=== PATIENT | male | born 1950 | race Caucasian/White ===

== ENCOUNTER 2019-05-16 04:23 | Inpatient (IN) | payer MEDICARE, OTHER ==
[~2019-05-16] VITALS: Ht 180.3 cm; Wt 81.8 kg
[2019-05-16] MEDS ORDERED: normal saline 1000ML IV soln IVB ONE (04:35)
[2019-05-16] MEDS ORDERED: methylPREDNISolone sod succ 125mg/2ml vial IV ONE (04:35)
[2019-05-16] MEDS ORDERED: ipratropium/albuterol 3ml nebule NEB ONE (04:35)
[2019-05-16 04:53] LABS: BASOPHILS # (AUTO) 0.2 X10'3 (0-0.2); BASOPHILS % (AUTO) 1.4 % (0-1); EOSINOPHILS # (AUTO) 0.2 X10'3 (0-0.9); EOSINOPHILS % (AUTO) 1.4 % (0-6); HEMATOCRIT 48.6 % (42.0-52.0); HEMOGLOBIN 16.2 g/dl (14.0-17.9); LYMPHOCYTES # (AUTO) 4.8 X10'3 (1.1-4.8); LYMPHOCYTES % (AUTO) 43.4 % (21-51); MEAN CORPUSCULAR HEMOGLOBIN 33.6 PG (27.0-31.0); MEAN CORPUSCULAR HGB CONC 33.2 g/dL (33.0-36.5); MEAN CORPUSCULAR VOLUME 101.2 FL (78-98); MEAN PLATELET VOLUME 8.6 FL (7.4-10.4); MONOCYTES # (AUTO) 0.9 X10'3 (0-0.9); MONOCYTES % (AUTO) 8.3 % (2-12); NEUTROPHILS % (AUTO) 45.5 % (42-75); PLATELET COUNT 239 X10'3 (140-440); RED CELL DISTRIBUTION WIDTH 14.1 % (11.5-14.5)
[2019-05-16 05:16] LABS: D-DIMER 1.23 MG/L FEU (0-0.50); PARTIAL THROMBOPLASTIN TIME 25 SECONDS (22-32)
[2019-05-16] MEDS ORDERED: nitroGLYCERIN 0.4mg SUBLingual tab SL PRN (05:20)
[2019-05-16] MEDS ORDERED: furosemide 10 MG/1 ML 10ml inj IV ONE (05:20)
[2019-05-16 05:27] LABS: ALBUMIN 3.5 G/DL (3.4-5.0); ALBUMIN/GLOBULIN RATIO 0.8 (1.1-1.5); ALKALINE PHOSPHATASE 71 IU/L (46-116); ANION GAP 14 (8-16); ASPARTATE AMINO TRANSFERASE 66 U/L (10-37); BLOOD UREA NITROGEN 7 MG/DL (7-18); BUN/CREATININE RATIO 5.8 (5.4-32.0); CALCIUM 9.1 MG/DL (8.5-10.1); CHLORIDE 110 MMOL/L (99-107); CREATININE 1.21 MG/DL (0.60-1.10); GLUCOSE 166 MG/DL (70-104); POTASSIUM 4.3 MMOL/L (3.5-5.1); SODIUM 147 MMOL/L (135-145); TOTAL CARBON DIOXIDE 23.3 MMOL/L (24-32); TOTAL PROTEIN 7.9 G/DL (6.4-8.2); eGFR 60 ML/MIN
[2019-05-16 05:46] LABS: ALANINE AMINOTRANSFERASE 49 U/L (12-78)
[2019-05-16] MEDS ORDERED: iohexol 350MG/ML 100ml bottle IV ONE (06:12)
[2019-05-16 06:40] LABS: CLARITY,URINE SLIGHTLY CLOUDY (Clear); COLOR,URINE YELLOW (Yellow); GLUCOSE, URINE NEGATIVE (Neg); KETONES,URINE NEGATIVE (Neg); LEUKOCYTE ESTERASE ,URINE NEGATIVE (Neg); NITRITES, URINE NEGATIVE (Neg); OCCULT BLOOD,URINE NEGATIVE (Neg); PROTEIN,URINE 30 mg/dl (Neg)
[2019-05-16 06:46] LABS: UA COLLECTION TYPE CLN CATCH MIDSTREAM
[2019-05-16 06:47] LABS: AMORPHOUS URATES 3+; BACTERIA,URINE FEW /HPF (Neg); HYALINE CASTS 0-3 /LPF (NEGATIVE); MUCUS STRANDS FEW /LPF (Neg); RBC,URINE NONE SEEN /HPF (0-2); SQUAMOUS EPITHELIAL CELL,UR FEW /LPF (FEW); WBC,URINE 0-4 /HPF (0-4)
[2019-05-16 06:55] LABS: URINE AMPHETAMINE SCREEN NEGATIVE (Neg); URINE BARBITUATE SCREEN NEGATIVE (Neg); URINE BENZODIAZEPINES SCREEN NEGATIVE (Neg); URINE CANNABINOID SCREEN POSITIVE (Neg); URINE COCAINE SCREEN NEGATIVE (Neg); URINE METHADONE SCREEN NEGATIVE (Neg); URINE OPIATE SCREEN NEGATIVE (Neg); URINE PHENCYCLIDINE SCREEN NEGATIVE (Neg)
--- NOTE | 2019-05-16 06:55 | NUR ---
PT BACK FROM CT. PT LEADS REAPPLIED AND VS TAKEN.
--- NOTE | 2019-05-16 07:08 | NUR ---
PT HAS TAKEN CARDIAC LEADS OFF.
[2019-05-16] MEDS ORDERED: potassium Cl 20 mEq SR tablet PO PRN ×2 (09:10)
[2019-05-16] MEDS ORDERED: magnesium 2GM in 50ml NS 50 ML IV PRN (09:10)
[2019-05-16] MEDS ORDERED: acetaminophen 325mg tablet PO PRN (09:10)
[2019-05-16] MEDS ORDERED: ondansetron/PF 4mg/2ml inj IV PRN (09:10)
[2019-05-16] MEDS ORDERED: magnesium 4gm in 100ml NS 100 ML IV PRN (09:10)
[2019-05-16] MEDS ORDERED: docusate sod 100mg capsule PO PRN (09:10)
[2019-05-16] MEDS ORDERED: HYDROcodone/acetaminophen 5mg/325mg tablet PO PRN (09:10)
[2019-05-16] MEDS ORDERED: potassium CL 10mEq/100ml bag 100 ML IV PRN ×2 (09:10)
[2019-05-16] MEDS ORDERED: HYDROcodone/acetaminophen 10/325mg tab PO PRN (09:10)
[2019-05-16] MEDS ORDERED: magnesium Cl slow-release 64mg tablet PO PRN (09:10)
[2019-05-16] MEDS ORDERED: LORazepam 1 MG tablet PO PRN (10:00)
[2019-05-16] MEDS ORDERED: haloperidol 5mg tablet PO PRN (10:00)
[2019-05-16] MEDS ORDERED: haloperidol lactate 5mg/ml inj IM PRN (10:00)
[2019-05-16] MEDS: DOXYCYCLINE 100MG CAPSULE PO SCH ×2 (10:00→21:15)
[2019-05-16] MEDS ORDERED: LORazepam 2 mg/ml vial IV PRN (10:00)
--- NOTE | 2019-05-16 10:00 | NUR ---
Patient in room MED 315. I have received report from PINO Sandoval and had the opportunity to ask questions and assume patient care.
--- NOTE | 2019-05-16 10:05 | NUR ---
Pt arrived to room via wheelchair with monitor technician attached. pt arrived with all known belongings and visitor at bedside. pt vss.
[2019-05-16] MEDS: mag hydrox/Alum hydrox/simeth 30ml oral suspension PO PRN ×2 (11:04→17:37)
[2019-05-16 13:13] VITALS: BP 124/86
[2019-05-16] MEDS ORDERED: METO-395 PO (13:51)
[2019-05-16] MEDS: methylPREDNISolone sod succ/PF 40mg inj. IV SCH ×2 (14:27→21:16)
--- NOTE | 2019-05-16 15:00 | NUR ---
Patient in room MICHEAL 355. I have received report from bobo PRINGLE and had the opportunity to ask questions and assume patient care.
[2019-05-16] MEDS: ipratropium/albuterol 3ml nebule NEB SCH ×2 (16:01→20:30)
[2019-05-16] MEDS ORDERED: pneumococcal 23-VAL P-sac vacc 25 mcg/0.5ml vial IMVAC ONE (17:15)
--- NOTE | 2019-05-16 18:42 | NUR ---
Patient in room MICHEAL 355. I have received report from Annabelle PRINGLE and had the opportunity to ask questions and assume patient care.
--- NOTE | 2019-05-16 18:42 | NUR ---
patient resting rest of shift in bed. When staff went to check on patient at 1700hrs, patient was not in room. Security called. patient after 30mins returned to floor with son. Stated he walked to [facility] with son to get a battery. son stated that he and his father did not know they couldn't leave. Charge nurses eladia PRINGLE and flex PRINGLE night charge aware. Dr Jean paged about the event. Stated patient can stay but with reinforced instructions that he could not leave floor. patient compliant, and returned to room. patient appears Alert and orientated. Report given to Edith PRINGLE
[2019-05-16 19:00] VITALS: BP 133/84
[2019-05-16] MEDS: furosemide 20 MG/2 ML vial IV SCH (21:11)
[2019-05-16] MEDS: lactobacillus rhamnosus 10,000 MMU CELLS/CAPSULE PO SCH (21:15)
[2019-05-17] VITALS (10 sets, daily range): BP systolic 119–165; BP diastolic 80–100
[2019-05-17] MEDS: methylPREDNISolone sod succ/PF 40mg inj. IV SCH ×4 (01:17→21:18)
[2019-05-17 05:41] LABS: BASOPHILS % (AUTO) 0.4 % (0-1); EOSINOPHILS % (AUTO) 0 % (0-6); HEMATOCRIT 46.1 % (42.0-52.0); HEMOGLOBIN 15.3 g/dl (14.0-17.9); LYMPHOCYTES # (AUTO) 0.7 X10'3 (1.1-4.8); LYMPHOCYTES % (AUTO) 6.2 % (21-51); MEAN CORPUSCULAR HEMOGLOBIN 32.7 PG (27.0-31.0); MEAN CORPUSCULAR HGB CONC 33.2 g/dL (33.0-36.5); MEAN CORPUSCULAR VOLUME 98.5 FL (78-98); MONOCYTES # (AUTO) 0.3 X10'3 (0-0.9); MONOCYTES % (AUTO) 2.8 % (2-12); NEUTROPHILS # (AUTO) 10.8 X10'3 (1.8-7.7); NEUTROPHILS % (AUTO) 90.6 % (42-75); PLATELET COUNT 196 X10'3 (140-440); RED BLOOD COUNT 4.68 X10'6 (4.70-6.10); RED CELL DISTRIBUTION WIDTH 13.9 % (11.5-14.5)
[2019-05-17 05:53] LABS: ALANINE AMINOTRANSFERASE 38 U/L (12-78); ALBUMIN 3.2 G/DL (3.4-5.0); ALBUMIN/GLOBULIN RATIO 0.8 (1.1-1.5); ALKALINE PHOSPHATASE 72 IU/L (46-116); ANION GAP 9 (8-16); ASPARTATE AMINO TRANSFERASE 28 U/L (10-37); BLOOD UREA NITROGEN 14 MG/DL (7-18); CALCIUM 8.7 MG/DL (8.5-10.1); CHLORIDE 104 MMOL/L (99-107); CHOL/HDL RATIO 2.6 (0.00-4.99); CHOLESTEROL 143 MG/DL (0-200); GLUCOSE 193 MG/DL (70-104); HDL CHOLESTEROL 55 MG/DL (35-60); LDL CHOLESTEROL 77 MG/DL (50-100); LIPASE 66 U/L (73-393); MAGNESIUM 1.9 MG/DL (1.5-2.4); PHOSPHORUS 2.9 MG/DL (2.3-4.5); POTASSIUM 4.3 MMOL/L (3.5-5.1); SODIUM 138 MMOL/L (135-145); TOTAL PROTEIN 7.4 G/DL (6.4-8.2); TRIGLYCERIDES 44 MG/DL (20-135); eGFR 75 ML/MIN
[2019-05-17] MEDS: mag hydrox/Alum hydrox/simeth 30ml oral suspension PO PRN (07:22)
[2019-05-17] MEDS: DOXYCYCLINE 100MG CAPSULE PO SCH ×2 (07:23→21:18)
[2019-05-17] MEDS: multivitamins, therapeutics tablet PO SCH (07:23)
[2019-05-17] MEDS: thiamine 100mg tablet PO SCH (07:23)
[2019-05-17] MEDS: lactobacillus rhamnosus 10,000 MMU CELLS/CAPSULE PO SCH ×2 (07:23→21:18)
[2019-05-17] MEDS: folic acid 1mg tablet PO SCH (07:23)
[2019-05-17] MEDS: lisinopril 2.5mg tablet PO SCH (07:24)
[2019-05-17] MEDS: furosemide 20 MG/2 ML vial IV SCH ×2 (07:26→21:19)
[2019-05-17] MEDS: enoxaparin 40mg/0.4ml syringe SQ SCH ×2 (07:26→07:34)
[2019-05-17] MEDS ORDERED: K and/or MAG REPLACEMENT MC SCH (08:00)
[2019-05-17] MEDS ORDERED: metoprolol succinate 25mg (24-HOUR) SR. Tablet PO SCH (08:00)
[2019-05-17] MEDS: ipratropium/albuterol 3ml nebule NEB SCH ×3 (08:55→20:26)
[2019-05-17] MEDS ORDERED: nitroGLYCERIN 0.4mg SUBLingual tab SL PRN (13:20)
[2019-05-17] MEDS ORDERED: regadenoson 0.4mg/5ml syringe IV ONE (13:20)
[2019-05-17] MEDS ORDERED: aminophylline 250mg/10ml inj. IV PRN (13:20)
[2019-05-17] MEDS ORDERED: metoprolol tartrate 1mg/ml inj IV PRN (13:20)
[2019-05-17] MEDS ORDERED: potassium CL 10mEq/100ml bag 100 ML IV PRN (13:35)
[2019-05-17] MEDS ORDERED: magnesium Cl slow-release 64mg tablet PO PRN (13:35)
[2019-05-17] MEDS ORDERED: potassium Cl 20 mEq SR tablet PO PRN ×2 (13:35)
[2019-05-17] MEDS ORDERED: magnesium 4gm in 100ml NS 100 ML IV PRN (13:35)
--- NOTE | 2019-05-17 17:54 | NUR ---
Patient shaved. IVs in appropriate places per cath lab tech request. Awaiting time for orange picker machine operator for cath lab tech
[2019-05-17] MEDS ORDERED: midazolam 2 mg/2 ml injection ONE (18:15)
[2019-05-17] MEDS ORDERED: iohexol 350MG/ML 100ml bottle IV ONE (18:15)
[2019-05-17] MEDS ORDERED: verapamil 2.5 mg/ml inj IV ONE (18:15)
[2019-05-17] MEDS ORDERED: iohexol 350 MG/ML 50ML vial IV ONE ×3 (18:15→19:44)
[2019-05-17] MEDS ORDERED: fentaNYL/PF 50MCG/1 ML 2ML syringe ONE (18:15)
[2019-05-17] MEDS ORDERED: heparin 1,000unit/ml 10ml vial 10 ML ONE (18:15)
[2019-05-17] MEDS ORDERED: nitroGLYCERIN-Tridil 50MG/D5W 250 ML IV ONE (18:15)
[2019-05-17] MEDS ORDERED: LIDOcaine 1% (10mg/ml)w/preservative injection 20ml MDV ONE (18:25)
--- NOTE | 2019-05-17 18:29 | NUR ---
Problems reprioritized. Patient report given, questions answered & plan of care reviewed with LYLY Macdonald RN.
--- NOTE | 2019-05-17 18:38 | NUR ---
Patient in room MICHEAL 355. I have received report from PINO KNIGHT and had the opportunity to ask questions and assume patient care. Addendum: 05/17/19 at 1838 by Kathy Alvarado RN Amended: Links added.
--- NOTE | 2019-05-17 19:06 | NUR ---
patient was taken down for cardiac cath @1830
[2019-05-17] MEDS ORDERED: furosemide 40mg/4ml inj ONE (19:45)
[2019-05-17 19:51] LABS: ISTAT HGB ART 15.6 g/dl (14.0-18.0); ISTAT Hct ART 46 %PCV (42-52); ISTAT O2 SATURATION ARTERIAL 94 % (95-98); ISTAT SOURCE ART
[2019-05-17 19:51] LABS: ISTAT Hct MIX 47 %PCV (42-52); ISTAT O2 SATURATION MIX VENOUS 71 % (60-80); ISTAT SOURCE MIX
--- NOTE | 2019-05-17 20:22 | NUR ---
patient just came back from cardiac cath, not in distress and will continue to monitor
[2019-05-17] MEDS: carvedilol 6.25mg tablet PO SCH (21:18)
[2019-05-17] MEDS: acetylcysteine 200 MG/ml 4ml vial PO SCH (21:18)
--- NOTE | 2019-05-17 23:05 | NUR ---
patient educated about post op cardiac cath instructions he was cooperative and first but then keep moving and curling up in bed most of the time, did spoke to him about the risks and hes aware
[2019-05-18] VITALS: BP 113/70
[2019-05-18 00:15] VITALS: BP 129/76
[2019-05-18] MEDS: methylPREDNISolone sod succ/PF 40mg inj. IV SCH ×2 (02:11→08:00)
--- NOTE | 2019-05-18 05:31 | NUR ---
pt accidently pulled IV out and refusing to start a new one. pedals palpable and in no acute distress. rt. groin no bleeding and denies chest pain
[2019-05-18 06:12] LABS: BASOPHILS % (AUTO) 0.3 % (0-1); EOSINOPHILS % (AUTO) 0 % (0-6); HEMOGLOBIN 15.8 g/dl (14.0-17.9); LYMPHOCYTES # (AUTO) 0.9 X10'3 (1.1-4.8); LYMPHOCYTES % (AUTO) 5.7 % (21-51); MEAN CORPUSCULAR HEMOGLOBIN 33.3 PG (27.0-31.0); MEAN CORPUSCULAR HGB CONC 33.6 g/dL (33.0-36.5); MEAN CORPUSCULAR VOLUME 99.3 FL (78-98); MEAN PLATELET VOLUME 8.5 FL (7.4-10.4); MONOCYTES # (AUTO) 0.5 X10'3 (0-0.9); MONOCYTES % (AUTO) 3.5 % (2-12); NEUTROPHILS # (AUTO) 13.5 X10'3 (1.8-7.7); NEUTROPHILS % (AUTO) 90.5 % (42-75); PLATELET COUNT 199 X10'3 (140-440); RED BLOOD COUNT 4.74 X10'6 (4.70-6.10)
[2019-05-18 06:34] LABS: ALANINE AMINOTRANSFERASE 42 U/L (12-78); ALBUMIN 3.3 G/DL (3.4-5.0); ALBUMIN/GLOBULIN RATIO 0.8 (1.1-1.5); ALKALINE PHOSPHATASE 68 IU/L (46-116); ANION GAP 9 (8-16); ASPARTATE AMINO TRANSFERASE 72 U/L (10-37); BILIRUBIN,TOTAL 1.1 MG/DL (0.1-1.0); BLOOD UREA NITROGEN 23 MG/DL (7-18); BUN/CREATININE RATIO 22.3 (5.4-32.0); CALCIUM 8.9 MG/DL (8.5-10.1); CHLORIDE 103 MMOL/L (99-107); CREATININE 1.03 MG/DL (0.60-1.10); GLUCOSE 156 MG/DL (70-104); LIPASE 93 U/L (73-393); PHOSPHORUS 4.4 MG/DL (2.3-4.5); POTASSIUM 5.3 MMOL/L (3.5-5.1); SODIUM 136 MMOL/L (135-145); TOTAL CARBON DIOXIDE 23.8 MMOL/L (24-32); TOTAL PROTEIN 7.3 G/DL (6.4-8.2); eGFR 72 ML/MIN
--- NOTE | 2019-05-18 06:37 | NUR ---
Problems reprioritized. Patient report given, questions answered & plan of care reviewed with PINO Alanis. Addendum: 05/18/19 at 0637 by Kathy Alvarado RN Amended: Links added.
--- NOTE | 2019-05-18 06:49 | NUR ---
Patient in room MICHEAL 350. I have received report from Lucrecia Macdonald RN and had the opportunity to ask questions and assume patient care.
[2019-05-18 08:00] VITALS: BP 120/87
[2019-05-18] MEDS: furosemide 20 MG/2 ML vial IV SCH (08:00)
[2019-05-18] MEDS: carvedilol 6.25mg tablet PO SCH ×2 (08:26→20:55)
[2019-05-18] MEDS: folic acid 1mg tablet PO SCH (08:26)
[2019-05-18] MEDS: lactobacillus rhamnosus 10,000 MMU CELLS/CAPSULE PO SCH ×2 (08:27→20:55)
[2019-05-18] MEDS: thiamine 100mg tablet PO SCH (08:27)
[2019-05-18] MEDS: multivitamins, therapeutics tablet PO SCH (08:27)
[2019-05-18] MEDS: lisinopril 2.5mg tablet PO SCH (08:27)
[2019-05-18] MEDS: DOXYCYCLINE 100MG CAPSULE PO SCH ×2 (08:27→20:55)
[2019-05-18] MEDS: acetylcysteine 200 MG/ml 4ml vial PO SCH ×2 (08:28→20:55)
[2019-05-18] MEDS: ipratropium/albuterol 3ml nebule NEB SCH ×3 (09:53→20:08)
[2019-05-18] MEDS: predniSONE 20 mg tablet PO SCH (10:44)
[2019-05-18] MEDS: furosemide 20MG tablet PO SCH (10:45)
[2019-05-18 12:00] VITALS: BP 123/74
[2019-05-18] MEDS ORDERED: spironolactone 25 MG tablet PO SCH (12:00)
--- NOTE | 2019-05-18 15:14 | NUR ---
Patient refused to have labs done, but after discussing need for it patient stated that it is ok if pharmacy laboratory technician uses small needle. Lab called and informed of this. . Patient resting at this time.
[2019-05-18 15:17] LABS: ALANINE AMINOTRANSFERASE 51 U/L (12-78); ALBUMIN 3.3 G/DL (3.4-5.0); ALBUMIN/GLOBULIN RATIO 0.8 (1.1-1.5); ALKALINE PHOSPHATASE 60 IU/L (46-116); ANION GAP 11 (8-16); ASPARTATE AMINO TRANSFERASE 110 U/L (10-37); BILIRUBIN,TOTAL 1.1 MG/DL (0.1-1.0); BLOOD UREA NITROGEN 25 MG/DL (7-18); BUN/CREATININE RATIO 21.2 (5.4-32.0); CHLORIDE 101 MMOL/L (99-107); CREATININE 1.18 MG/DL (0.60-1.10); GLUCOSE 172 MG/DL (70-104); POTASSIUM 4.8 MMOL/L (3.5-5.1); SODIUM 136 MMOL/L (135-145); TOTAL CARBON DIOXIDE 24.2 MMOL/L (24-32); TOTAL PROTEIN 7.4 G/DL (6.4-8.2); eGFR 62 ML/MIN
--- NOTE | 2019-05-18 18:07 | NUR ---
Problems reprioritized. Patient report given, questions answered & plan of care reviewed with Lucrecia Macdonald RN.
--- NOTE | 2019-05-18 18:38 | NUR ---
Patient in room MICHEAL 350. I have received report from PINO Alanis and had the opportunity to ask questions and assume patient care. Addendum: 05/18/19 at 1838 by Kathy Alvarado RN Amended: Links added.
[2019-05-18 19:00] VITALS: BP 107/67
[2019-05-19] VITALS: BP 104/72
[2019-05-19 04:58] LABS: BASOPHILS % (AUTO) 0.2 % (0-1); EOSINOPHILS % (AUTO) 0.1 % (0-6); HEMATOCRIT 49.3 % (42.0-52.0); HEMOGLOBIN 16.6 g/dl (14.0-17.9); LYMPHOCYTES # (AUTO) 2.1 X10'3 (1.1-4.8); MEAN CORPUSCULAR HEMOGLOBIN 33.2 PG (27.0-31.0); MEAN CORPUSCULAR HGB CONC 33.6 g/dL (33.0-36.5); MEAN CORPUSCULAR VOLUME 98.7 FL (78-98); MEAN PLATELET VOLUME 8.9 FL (7.4-10.4); MONOCYTES % (AUTO) 8.5 % (2-12); NEUTROPHILS # (AUTO) 8.8 X10'3 (1.8-7.7); NEUTROPHILS % (AUTO) 73.2 % (42-75); PLATELET COUNT 164 X10'3 (140-440); RED CELL DISTRIBUTION WIDTH 13.9 % (11.5-14.5)
[2019-05-19 05:09] LABS: ALANINE AMINOTRANSFERASE 68 U/L (12-78); ALBUMIN 3.3 G/DL (3.4-5.0); ALBUMIN/GLOBULIN RATIO 0.9 (1.1-1.5); ALKALINE PHOSPHATASE 60 IU/L (46-116); ANION GAP 9 (8-16); ASPARTATE AMINO TRANSFERASE 140 U/L (10-37); BLOOD UREA NITROGEN 30 MG/DL (7-18); BUN/CREATININE RATIO 30.3 (5.4-32.0); CALCIUM 8.8 MG/DL (8.5-10.1); CHLORIDE 101 MMOL/L (99-107); CREATININE 0.99 MG/DL (0.60-1.10); GLUCOSE 102 MG/DL (70-104); LIPASE 223 U/L (73-393); MAGNESIUM 1.9 MG/DL (1.5-2.4); PHOSPHORUS 4.2 MG/DL (2.3-4.5); POTASSIUM 4.7 MMOL/L (3.5-5.1); SODIUM 134 MMOL/L (135-145); TOTAL CARBON DIOXIDE 24.3 MMOL/L (24-32); TOTAL PROTEIN 7.1 G/DL (6.4-8.2); eGFR 76 ML/MIN
[2019-05-19] MEDS: mag hydrox/Alum hydrox/simeth 30ml oral suspension PO PRN (05:29)
--- NOTE | 2019-05-19 06:31 | NUR ---
Problems reprioritized. Patient report given, questions answered & plan of care reviewed with PINO Alanis. Addendum: 05/19/19 at 0631 by Kathy Alvarado RN Amended: Links added.
[2019-05-19 07:00] VITALS: BP 106/69
--- NOTE | 2019-05-19 07:20 | NUR ---
Patient in room MICHEAL 350. I have received report from Lucrecia Macdonald RN and had the opportunity to ask questions and assume patient care.
[2019-05-19] MEDS: multivitamins, therapeutics tablet PO SCH (08:59)
[2019-05-19] MEDS: lactobacillus rhamnosus 10,000 MMU CELLS/CAPSULE PO SCH (08:59)
[2019-05-19] MEDS: folic acid 1mg tablet PO SCH (08:59)
[2019-05-19] MEDS: lisinopril 2.5mg tablet PO SCH (08:59)
[2019-05-19] MEDS: predniSONE 20 mg tablet PO SCH (09:01)
[2019-05-19] MEDS: thiamine 100mg tablet PO SCH (09:01)
[2019-05-19] MEDS: DOXYCYCLINE 100MG CAPSULE PO SCH (09:01)
[2019-05-19] MEDS: carvedilol 6.25mg tablet PO SCH (09:01)
[2019-05-19] MEDS: furosemide 20MG tablet PO SCH (09:02)
[2019-05-19] MEDS: acetylcysteine 200 MG/ml 4ml vial PO SCH (09:06)
[2019-05-19] MEDS ORDERED: metolazone 2.5mg tablet PO SCH (09:30)
[2019-05-19] MEDS: ipratropium/albuterol 3ml nebule NEB SCH (09:45)
[2019-05-19 11:00] VITALS: BP 101/64
[2019-05-19] MEDS ORDERED: ALBU18HF2 INH (12:29)
[2019-05-19] MEDS ORDERED: PRED20TA PO (12:29)
[2019-05-19] MEDS ORDERED: DOXY-224 PO (12:29)
[2019-05-19] MEDS ORDERED: FURO20TA4 PO (12:29)
[2019-05-19] MEDS ORDERED: CARV6.253 PO (12:29)
[2019-05-19] MEDS ORDERED: LISI2.5T2 PO (12:29)
--- NOTE | 2019-05-19 15:21 | NUR ---
patient seen by Dr Jordan , and Dr Jean, is for discharge. meds delivered by [facility] . ALl DC instructions given to patient and sister. Patient appears stable for DC. Discharged home via private car 1500hrs.
== END 2019-05-19 14:30 | disposition home or self-care (01) | DRG 286 ==
LOC: ER 04:25 → MED 3N 10:09 → SUR 3N 14:20
PROVIDERS: ADMIT Family Medicine; ATTEND Family Medicine
PROC: 3E0234Z Introduction of Serum, Toxoid and Vaccine into Muscle, Percutaneous Approach (ICD-10-PCS; 2019-05-16)
PROC: B32T1ZZ Computerized Tomography (CT Scan) of Left Pulmonary Artery using Low Osmolar Contrast (ICD-10-PCS; 2019-05-16)
PROC: B3201ZZ Computerized Tomography (CT Scan) of Thoracic Aorta using Low Osmolar Contrast (ICD-10-PCS; 2019-05-16)
PROC: B32S1ZZ Computerized Tomography (CT Scan) of Right Pulmonary Artery using Low Osmolar Contrast (ICD-10-PCS; 2019-05-16)
PROC: B2111ZZ Fluoroscopy of Multiple Coronary Arteries using Low Osmolar Contrast (ICD-10-PCS; principal; 2019-05-17)
PROC: B2151ZZ Fluoroscopy of Left Heart using Low Osmolar Contrast (ICD-10-PCS; 2019-05-17)
PROC: 4A023N8 Measurement of Cardiac Sampling and Pressure, Bilateral, Percutaneous Approach (ICD-10-PCS; 2019-05-17)
PROC: B3101ZZ Fluoroscopy of Thoracic Aorta using Low Osmolar Contrast (ICD-10-PCS; 2019-05-17)
DX: I11.0 Hypertensive heart disease with heart failure (principal); I50.21 Acute systolic (congestive) heart failure; J96.01 Acute respiratory failure with hypoxia; J44.1 Chronic obstructive pulmonary disease with (acute) exacerbation; I25.10 Atherosclerotic heart disease of native coronary artery without angina pectoris; R00.0 Tachycardia, unspecified; F10.10 Alcohol abuse, uncomplicated; F17.210 Nicotine dependence, cigarettes, uncomplicated; I35.0 Nonrheumatic aortic (valve) stenosis; I42.0 Dilated cardiomyopathy; I42.6 Alcoholic cardiomyopathy; Z79.899 Other long term (current) drug therapy; Z80.0 Family history of malignant neoplasm of digestive organs; Z80.3 Family history of malignant neoplasm of breast; Z82.49 Family history of ischemic heart disease and other diseases of the circulatory system; Z23 Encounter for immunization; Z80.49 Family history of malignant neoplasm of other genital organs; Z71.6 Tobacco abuse counseling; Z71.41 Alcohol abuse counseling and surveillance of alcoholic; E87.5 Hyperkalemia; T50.0X5A Adverse effect of mineralocorticoids and their antagonists, initial encounter; Y92.238 Other place in hospital as the place of occurrence of the external cause
CPT/HCPCS: 36415; 71045; 71275; 80053; 80061; 80305; 81001; 82803; 83690; 83735; 83880; 84100; 84484; 85014; 85025; 85379; 85610; 85730; 90732; 93005; 93306; 93460; 93567; 94640; 94760; 96374; 96375; 99152; 99153; 99285; A4620; A5120; A6258; C1760; C1769; C1894; G0378; J1644; J1650; J1940; J2001; J2250; J2920; J2930; J3010; J3490; J7512; Q9967

== ENCOUNTER 2020-07-26 14:07 | Emergency (ER) | payer MEDICARE, MEDICAID ==
[~2020-07-26] VITALS: Ht 180.3 cm; Wt 77.3 kg
[~2020-07-26 14:07] MED LIST: ALBU18HF2 INH; CARV6.253 PO; DOXY-224 PO; FURO20TA4 PO; LISI2.5T2 PO; PRED20TA PO
[2020-07-26] MEDS ORDERED: normal saline 1000ML IV soln IVB ONE (14:35)
[2020-07-26] MEDS ORDERED: methylPREDNISolone sod succ 125mg/2ml vial IV ONE (14:35)
[2020-07-26] MEDS ORDERED: ipratropium/albuterol 3ml nebule NEB ONE (14:35)
[2020-07-26 15:06] LABS: BASOPHILS # (AUTO) 0.1 X10'3 (0-0.2); EOSINOPHILS # (AUTO) 0.5 X10'3 (0-0.9); EOSINOPHILS % (AUTO) 7.8 % (0-6); HEMATOCRIT 41.9 % (42.0-52.0); HEMOGLOBIN 13.8 g/dl (14.0-17.9); LYMPHOCYTES # (AUTO) 1.6 X10'3 (1.1-4.8); LYMPHOCYTES % (AUTO) 27.6 % (21-51); MEAN CORPUSCULAR HEMOGLOBIN 31.2 PG (27.0-31.0); MEAN CORPUSCULAR HGB CONC 32.9 g/dL (33.0-36.5); MEAN CORPUSCULAR VOLUME 94.8 FL (78-98); MEAN PLATELET VOLUME 8.9 FL (7.4-10.4); MONOCYTES # (AUTO) 0.5 X10'3 (0-0.9); MONOCYTES % (AUTO) 9.2 % (2-12); NEUTROPHILS # (AUTO) 3.2 X10'3 (1.8-7.7); NEUTROPHILS % (AUTO) 54.4 % (42-75); PLATELET COUNT 145 X10'3 (140-440); RED BLOOD COUNT 4.42 X10'6 (4.70-6.10); RED CELL DISTRIBUTION WIDTH 13.8 % (11.5-14.5); WHITE BLOOD COUNT 5.9 X10'3 (4.5-11.0)
[2020-07-26] MEDS ORDERED: albuterol 2.5 MG/3 ML nebule NEB ONE (15:20)
[2020-07-26 15:21] LABS: ALANINE AMINOTRANSFERASE 20 U/L (12-78); ALBUMIN 3.5 G/DL (3.4-5.0); ALKALINE PHOSPHATASE 73 IU/L (46-116); ANION GAP 9 (8-16); ASPARTATE AMINO TRANSFERASE 16 U/L (10-37); BILIRUBIN,TOTAL 1.9 MG/DL (0.1-1.0); BLOOD UREA NITROGEN 16 MG/DL (7-18); BUN/CREATININE RATIO 16.5 (5.4-32.0); CALCIUM 8.8 MG/DL (8.5-10.1); CHLORIDE 103 MMOL/L (99-107); CREATININE 0.97 MG/DL (0.60-1.10); GLUCOSE 110 MG/DL (70-104); POTASSIUM 4.5 MMOL/L (3.5-5.1); SODIUM 138 MMOL/L (135-145); TOTAL CARBON DIOXIDE 26.5 MMOL/L (24-32); TOTAL PROTEIN 7.1 G/DL (6.4-8.2); eGFR 77 ML/MIN
[2020-07-26] MEDS ORDERED: albuterol 2.5 MG/3 ML nebule ONE (16:06)
[2020-07-26] MEDS ORDERED: ALBU6.7H9 INH (16:38)
[2020-07-26] MEDS ORDERED: AZIT250T2 PO (16:38)
[2020-07-26] MEDS ORDERED: PRED20TA PO (16:38)
[2020-07-26 16:56] VITALS: BP 122/63
== END 2020-07-26 16:57 | disposition home or self-care (01) ==
LOC: ER 14:07
DX: J44.1 Chronic obstructive pulmonary disease with (acute) exacerbation (principal); R06.02 Shortness of breath; R05 Cough; Z79.2 Long term (current) use of antibiotics; Z79.899 Other long term (current) drug therapy
CPT/HCPCS: 36415; 71045; 80053; 85025; 93005; 94640; 96361; 96374; 99285; J2930; J7030

== ENCOUNTER 2020-07-31 09:46 | Emergency (ER) | payer MEDICARE, MEDICAID ==
[~2020-07-31] VITALS: Ht 180.3 cm; Wt 77.3 kg
[~2020-07-31 09:46] MED LIST changes: +ALBU6.7H9 INH; +AZIT250T2 PO
--- NOTE | 2020-07-31 10:30 | NUR ---
pt is complaining about the EMS "buggy driver" who brought him in. stating that "they said I only wanted to come in to get a bed. they shouldn't assume that as if nothing is wrong with me. I want to talk to the person in charge." offered to have the charge nurse come in and talk with him. He said, "I don't want the charge nurse. I want someone higher up because that margoth is gonna hear it from me." the pt made some other colorful remarks.
[2020-07-31 10:50] LABS: BASOPHILS # (AUTO) 0.1 X10'3 (0-0.2); BASOPHILS % (AUTO) 0.9 % (0-1); EOSINOPHILS # (AUTO) 0.2 X10'3 (0-0.9); EOSINOPHILS % (AUTO) 2.4 % (0-6); HEMATOCRIT 41.5 % (42.0-52.0); HEMOGLOBIN 13.8 g/dl (14.0-17.9); LYMPHOCYTES # (AUTO) 2.2 X10'3 (1.1-4.8); MEAN CORPUSCULAR HEMOGLOBIN 31.4 PG (27.0-31.0); MEAN CORPUSCULAR HGB CONC 33.2 g/dL (33.0-36.5); MEAN CORPUSCULAR VOLUME 94.5 FL (78-98); MONOCYTES # (AUTO) 0.6 X10'3 (0-0.9); MONOCYTES % (AUTO) 7.5 % (2-12); NEUTROPHILS # (AUTO) 4.8 X10'3 (1.8-7.7); NEUTROPHILS % (AUTO) 61.2 % (42-75); PLATELET COUNT 151 X10'3 (140-440); RED BLOOD COUNT 4.39 X10'6 (4.70-6.10); RED CELL DISTRIBUTION WIDTH 13.8 % (11.5-14.5); WHITE BLOOD COUNT 7.8 X10'3 (4.5-11.0)
[2020-07-31 11:06] LABS: ALANINE AMINOTRANSFERASE 25 U/L (12-78); ALBUMIN 3.5 G/DL (3.4-5.0); ALKALINE PHOSPHATASE 62 IU/L (46-116); ANION GAP 11 (8-16); ASPARTATE AMINO TRANSFERASE 17 U/L (10-37); BLOOD UREA NITROGEN 29 MG/DL (7-18); CALCIUM 8.4 MG/DL (8.5-10.1); CHLORIDE 103 MMOL/L (99-107); CREATININE 1.16 MG/DL (0.60-1.10); D-DIMER 4.42 MG/L FEU (0-0.50); GLUCOSE 120 MG/DL (70-104); PARTIAL THROMBOPLASTIN TIME 26 SECONDS (22-32); POTASSIUM 3.9 MMOL/L (3.5-5.1); SODIUM 139 MMOL/L (135-145); TOTAL CARBON DIOXIDE 24.6 MMOL/L (24-32); eGFR 63 ML/MIN
[2020-07-31 11:11] LABS: MAGNESIUM 1.7 MG/DL (1.5-2.4)
[2020-07-31] MEDS ORDERED: iohexol 350MG/ML 100ml bottle IV ONE (11:54)
[2020-07-31 12:59] VITALS: BP 103/66
--- NOTE | 2020-07-31 13:15 | NUR ---
pt has talked with Tod about the EMS issue.
== END 2020-07-31 13:24 | disposition home or self-care (01) ==
LOC: ER 09:46
DX: I50.9 Heart failure, unspecified (principal); Z98.890 Other specified postprocedural states; Z95.0 Presence of cardiac pacemaker; Z79.899 Other long term (current) drug therapy
CPT/HCPCS: 36415; 71045; 71275; 80053; 83735; 83880; 84484; 85025; 85379; 85610; 85730; 93005; 99285; Q9967

== ENCOUNTER 2020-08-05 01:44 | Emergency (ER) | payer MEDICARE, MEDICAID ==
[~2020-08-05] VITALS: Ht 180.3 cm; Wt 77.3 kg
[~2020-08-05 01:44] MED LIST changes: -AZIT250T2 PO
[2020-08-05 01:48] VITALS: BP 112/72
[2020-08-05 02:59] LABS: BASOPHILS % (AUTO) 0.8 % (0-1); EOSINOPHILS # (AUTO) 0.2 X10'3 (0-0.9); EOSINOPHILS % (AUTO) 3.2 % (0-6); HEMATOCRIT 40.4 % (42.0-52.0); HEMOGLOBIN 13.3 g/dl (14.0-17.9); LYMPHOCYTES # (AUTO) 1.7 X10'3 (1.1-4.8); LYMPHOCYTES % (AUTO) 28.7 % (21-51); MEAN CORPUSCULAR HGB CONC 32.9 g/dL (33.0-36.5); MEAN CORPUSCULAR VOLUME 94.3 FL (78-98); MEAN PLATELET VOLUME 8.7 FL (7.4-10.4); MONOCYTES # (AUTO) 0.6 X10'3 (0-0.9); MONOCYTES % (AUTO) 10.8 % (2-12); NEUTROPHILS # (AUTO) 3.3 X10'3 (1.8-7.7); NEUTROPHILS % (AUTO) 56.5 % (42-75); PLATELET COUNT 147 X10'3 (140-440); RED BLOOD COUNT 4.28 X10'6 (4.70-6.10); WHITE BLOOD COUNT 5.8 X10'3 (4.5-11.0)
[2020-08-05 03:03] LABS: ALANINE AMINOTRANSFERASE 26 U/L (12-78); ALBUMIN 3.3 G/DL (3.4-5.0); ALKALINE PHOSPHATASE 64 IU/L (46-116); ANION GAP 10 (8-16); ASPARTATE AMINO TRANSFERASE 16 U/L (10-37); BILIRUBIN,TOTAL 1.6 MG/DL (0.1-1.0); BLOOD UREA NITROGEN 21 MG/DL (7-18); CALCIUM 8.6 MG/DL (8.5-10.1); CHLORIDE 104 MMOL/L (99-107); GLUCOSE 114 MG/DL (70-104); SODIUM 140 MMOL/L (135-145); TOTAL CARBON DIOXIDE 25.6 MMOL/L (24-32); TOTAL PROTEIN 6.7 G/DL (6.4-8.2); eGFR 74 ML/MIN
[2020-08-05 03:13] LABS: TROPONIN I < 0.04 NG/ML (0.0-0.05)
== END 2020-08-05 04:17 | disposition home or self-care (01) ==
LOC: ER 01:45
DX: R06.09 Other forms of dyspnea (principal); R06.02 Shortness of breath; Z95.0 Presence of cardiac pacemaker; Z79.899 Other long term (current) drug therapy
CPT/HCPCS: 36415; 71045; 80053; 83880; 84484; 85025; 93005; 99285

== ENCOUNTER 2020-08-11 11:06 | Inpatient (IN) | payer MEDICARE, MEDICAID ==
[~2020-08-11] VITALS: Ht 180.3 cm; Wt 77.0 kg
[2020-08-11 12:04] LABS: BASOPHILS % (AUTO) 0.7 % (0-1); EOSINOPHILS # (AUTO) 0.5 X10'3 (0-0.9); EOSINOPHILS % (AUTO) 8.2 % (0-6); HEMATOCRIT 44.1 % (42.0-52.0); HEMOGLOBIN 14.6 g/dl (14.0-17.9); LYMPHOCYTES # (AUTO) 1.5 X10'3 (1.1-4.8); LYMPHOCYTES % (AUTO) 23.2 % (21-51); MEAN CORPUSCULAR HEMOGLOBIN 31.3 PG (27.0-31.0); MEAN CORPUSCULAR HGB CONC 33.1 g/dL (33.0-36.5); MEAN CORPUSCULAR VOLUME 94.6 FL (78-98); MEAN PLATELET VOLUME 8.7 FL (7.4-10.4); MONOCYTES # (AUTO) 0.5 X10'3 (0-0.9); MONOCYTES % (AUTO) 7.2 % (2-12); NEUTROPHILS # (AUTO) 3.9 X10'3 (1.8-7.7); NEUTROPHILS % (AUTO) 60.7 % (42-75); PLATELET COUNT 150 X10'3 (140-440); RED BLOOD COUNT 4.66 X10'6 (4.70-6.10); RED CELL DISTRIBUTION WIDTH 14.4 % (11.5-14.5); WHITE BLOOD COUNT 6.3 X10'3 (4.5-11.0)
[2020-08-11 12:22] LABS: ALANINE AMINOTRANSFERASE 28 U/L (12-78); ALBUMIN 3.9 G/DL (3.4-5.0); ALKALINE PHOSPHATASE 108 IU/L (46-116); ANION GAP 10 (8-16); ASPARTATE AMINO TRANSFERASE 34 U/L (10-37); BILIRUBIN,TOTAL 2.9 MG/DL (0.1-1.0); BLOOD UREA NITROGEN 20 MG/DL (7-18); BUN/CREATININE RATIO 17.7 (5.4-32.0); CALCIUM 8.7 MG/DL (8.5-10.1); CHLORIDE 99 MMOL/L (99-107); CREATININE 1.13 MG/DL (0.60-1.10); GLUCOSE 119 MG/DL (70-104); POTASSIUM 4.8 MMOL/L (3.5-5.1); SODIUM 133 MMOL/L (135-145); eGFR 65 ML/MIN
[2020-08-11] MEDS ORDERED: ipratropium/albuterol 3ml nebule NEB ONE (12:35)
[2020-08-11] MEDS ORDERED: methylPREDNISolone sod succ 125mg/2ml vial IV ONE (12:35)
[2020-08-11] MEDS ORDERED: albuterol 2.5 MG/3 ML nebule NEB ONE (12:35)
[2020-08-11] MEDS ORDERED: CARV6.253 PO (12:47)
[2020-08-11] MEDS ORDERED: OMEP-50 PO (12:47)
[2020-08-11] MEDS ORDERED: ATOR40TA72 PO (12:47)
[2020-08-11] MEDS ORDERED: LISI2.5T2 PO (12:47)
[2020-08-11] MEDS ORDERED: ASPI-1397 PO (12:47)
[2020-08-11] MEDS ORDERED: ALBU18HF2 IH (12:47)
[2020-08-11] MEDS ORDERED: FURO40TA4 PO (12:47)
[2020-08-11] MEDS ORDERED: magnesium 2GM in 50ml NS 50 ML IV PRN (13:40)
[2020-08-11] MEDS ORDERED: magnesium Cl slow-release 64mg tablet PO PRN (13:40)
[2020-08-11] MEDS ORDERED: potassium Cl 20 mEq SR tablet PO PRN ×2 (13:40)
[2020-08-11] MEDS ORDERED: magnesium 4gm in 100ml NS 100 ML IV PRN (13:40)
[2020-08-11] MEDS ORDERED: potassium CL 10mEq/100ml bag 100 ML IV PRN ×2 (13:40)
[2020-08-11] MEDS ORDERED: ondansetron/PF 4mg/2ml inj IV PRN (13:40)
[2020-08-11] MEDS ORDERED: acetaminophen 325mg tablet PO PRN (13:40)
[2020-08-11] MEDS ORDERED: ipratropium/albuterol 3ml nebule NEB PRN (13:40)
--- NOTE | 2020-08-11 14:43 | NUR ---
CALLED FOR REPORT FROM ER. NURSE WAS ON LUNCH , SHE JUST CALLED AND GAVE REPORT.
[2020-08-11] MEDS: aspirin 81mg tablet.DR PO SCH (15:30)
[2020-08-11] MEDS: lisinopril 2.5mg tablet PO SCH (15:31)
[2020-08-11 16:49] VITALS: BP 122/76
[2020-08-11 18:00] VITALS: BP 138/74
--- NOTE | 2020-08-11 18:06 | NUR ---
Problems reprioritized. Patient report given, questions answered & plan of care reviewed with dolores kaye.
--- NOTE | 2020-08-11 18:16 | NUR ---
Patient in room MED 318. I have received report from Sandra PRINGLE and had the opportunity to ask questions and assume patient care.
[2020-08-11] MEDS: carvedilol 6.25mg tablet PO SCH (20:00)
[2020-08-11] MEDS: K and/or MAG REPLACEMENT MC SCH (20:00)
[2020-08-11] MEDS: methylPREDNISolone sod succ/PF 40mg inj. IV SCH (20:53)
[2020-08-11] MEDS: heparin, porcine 5000 units/ml vial SQ SCH (20:55)
[2020-08-11 22:00] VITALS: BP 101/62
[2020-08-12 00:38] LABS: BASOPHILS % (AUTO) 0.5 % (0-1); EOSINOPHILS % (AUTO) 0.4 % (0-6); HEMATOCRIT 39.8 % (42.0-52.0); HEMOGLOBIN 13.1 g/dl (14.0-17.9); LYMPHOCYTES # (AUTO) 0.4 X10'3 (1.1-4.8); LYMPHOCYTES % (AUTO) 12.1 % (21-51); MEAN CORPUSCULAR HEMOGLOBIN 31.5 PG (27.0-31.0); MEAN CORPUSCULAR VOLUME 95.5 FL (78-98); MONOCYTES # (AUTO) 0.1 X10'3 (0-0.9); NEUTROPHILS # (AUTO) 3.1 X10'3 (1.8-7.7); PLATELET COUNT 130 X10'3 (140-440); RED BLOOD COUNT 4.17 X10'6 (4.70-6.10); WHITE BLOOD COUNT 3.7 X10'3 (4.5-11.0)
[2020-08-12 00:57] LABS: ALBUMIN 3.2 G/DL (3.4-5.0); ANION GAP 11 (8-16); BLOOD UREA NITROGEN 29 MG/DL (7-18); BUN/CREATININE RATIO 26.9 (5.4-32.0); CALCIUM 8.7 MG/DL (8.5-10.1); CHLORIDE 99 MMOL/L (99-107); CREATININE 1.08 MG/DL (0.60-1.10); GLUCOSE 159 MG/DL (70-104); POTASSIUM 4.6 MMOL/L (3.5-5.1); SODIUM 132 MMOL/L (135-145); TOTAL CARBON DIOXIDE 22.1 MMOL/L (24-32); eGFR 68 ML/MIN
--- NOTE | 2020-08-12 01:15 | NUR ---
RT Page Needs breathing tx please, Dianelys aguilar [phone]
[2020-08-12] MEDS: ipratropium/albuterol 3ml nebule NEB PRN ×2 (01:37→10:54)
--- NOTE | 2020-08-12 01:41 | NUR ---
PAGER ID: [phone] MESSAGE: [phone]- ELDA ALBERTS TAKES LASIX PO 40MG BID-GRECIA PROGRESS NOTE STATED SHE WAS GOING TO CONTINUE MED, BUT DIDN'T PUT ORDER IN. PLEASE ADVISE DAMIEN MORGAN [phone]
[2020-08-12 02:00] VITALS: BP 95/57
--- NOTE | 2020-08-12 02:04 | NUR ---
PAGER ID: [phone] MESSAGE: [phone]- LEXUSELDA TAKES LASIX PO 40MG BID AT HOME, PATIENT REQUESTING ACCE [phone]
--- NOTE | 2020-08-12 02:37 | NUR ---
318A BASSAM ALBERTS CONTINUED HOME MED LASIX ORDER IN PROGRESS NOTE, DIDN'T ORDER IN EMAR. NEEDS TO DIEURESE, PLEASE CONTINUE, THX DAMIEN ACCE [phone]
[2020-08-12] MEDS: furosemide 40mg tablet PO SCH ×2 (02:49→10:28)
[2020-08-12 06:00] VITALS: BP 95/73
--- NOTE | 2020-08-12 07:15 | NUR ---
Problems reprioritized. Patient report given, questions answered & plan of care reviewed with FRANCIE PRINGLE.
[2020-08-12] MEDS: lisinopril 2.5mg tablet PO SCH (08:00)
[2020-08-12] MEDS: K and/or MAG REPLACEMENT MC SCH (08:00)
[2020-08-12] MEDS ORDERED: atorvastatin 20mg tablet PO SCH (08:00)
[2020-08-12] MEDS: heparin, porcine 5000 units/ml vial SQ SCH (08:12)
[2020-08-12] MEDS: methylPREDNISolone sod succ/PF 40mg inj. IV SCH (08:12)
[2020-08-12] MEDS: aspirin 81mg tablet.DR PO SCH (08:12)
--- NOTE | 2020-08-12 10:45 | NUR ---
pt. has nasal inhaler at bedside that he is refusing to let nursing staff take away. will ask MD when they round if it's appropriate to have at bedside.
[2020-08-12 11:00] VITALS: BP 103/52
--- NOTE | 2020-08-12 11:15 | NUR ---
DR. PAIGE PAGED: PAGER ID: [phone] MESSAGE: [phone]: Adrián burnham, pt concerned no void yet. ?order for Flomax? ty nurse Tasia [phone]
[2020-08-12] MEDS: carvedilol 6.25mg tablet PO SCH (11:26)
[2020-08-12 15:00] VITALS: BP 104/65
[2020-08-12] MEDS ORDERED: ipratropium/albuterol 3ml nebule NEB SCH (16:00)
--- NOTE | 2020-08-12 16:36 | NUR ---
dr. coronado paged PAGER ID: [phone] MESSAGE: [phone]: LEUXS - using RT treatments Q2H, not effective. ?morphine or ativan low dose to help with air hunger/comfort? ty nurse Tasia [phone]
[2020-08-12] MEDS ORDERED: LORazepam 0.5 MG tablet PO PRN (16:45)
--- NOTE | 2020-08-12 19:10 | NUR ---
Charge nurse Wai PRINGLE informed me that pt. was going AMA. Upon investigation, pt. states " i am not happy with the care and no one is doing anything for me; I want out of here." Tried to encourage the pt. to stay while we notify the doctor but pt. declained. Charge nurse Wai PRINGLE explained to pt. risks for leaving AMA but pt. still insisted on leaving. Discontinued PIV. Pt. signed AMA paper work and left. Notified Dr. Bautista via pager. Addendum: 08/12/20 at 1933 by Rachel Antonio RN Amended: Links added.
--- NOTE | 2020-08-12 19:11 | NUR ---
Problems reprioritized. Patient report given, questions answered & plan of care reviewed with PINO Ramos.
[2020-08-12] MEDS ORDERED: lisinopril 2.5mg tablet PO SCH (20:00)
[2020-08-12] MEDS ORDERED: oxymetazoline 15 ML nasal spray NS SCH (20:00)
== END 2020-08-12 19:11 | disposition left against medical advice (07) | DRG 291 ==
LOC: ER 11:06 → ED HOLD 13:36 → MED 3N 14:56
PROVIDERS: ADMIT Internal Medicine; ATTEND Internal Medicine
DX: I11.0 Hypertensive heart disease with heart failure (principal); J96.00 Acute respiratory failure, unspecified whether with hypoxia or hypercapnia; I50.23 Acute on chronic systolic (congestive) heart failure; J44.1 Chronic obstructive pulmonary disease with (acute) exacerbation; E03.9 Hypothyroidism, unspecified; E78.00 Pure hypercholesterolemia, unspecified; Z53.29 Procedure and treatment not carried out because of patient's decision for other reasons; E78.5 Hyperlipidemia, unspecified; F17.210 Nicotine dependence, cigarettes, uncomplicated; I35.0 Nonrheumatic aortic (valve) stenosis; F41.9 Anxiety disorder, unspecified; K21.9 Gastro-esophageal reflux disease without esophagitis; I25.2 Old myocardial infarction; Z80.3 Family history of malignant neoplasm of breast; Z80.0 Family history of malignant neoplasm of digestive organs
CPT/HCPCS: 36415; 71045; 80048; 80053; 83735; 83880; 84439; 84443; 84484; 85025; 87081; 93005; 93306; 94640; 94760; 96374; 99285; G0378; J1644; J2920; J2930

== ENCOUNTER 2020-10-04 10:37 | Inpatient (IN) | payer MEDICARE, MEDICAID ==
[~2020-10-04] VITALS: Ht 177.8 cm; Wt 81.8 kg
[~2020-10-04 10:37] MED LIST changes: +ALBU18HF2 IH; -ALBU18HF2 INH; -ALBU6.7H9 INH; +ASPI-1397 PO; +ATOR40TA72 PO; -DOXY-224 PO; -FURO20TA4 PO; +FURO40TA4 PO; +IPRA3AMP31 NEB; -PRED20TA PO
[2020-10-04] MEDS ORDERED: furosemide 10 MG/1 ML 10ml inj IV ONE (10:50)
--- NOTE | 2020-10-04 11:32 | NUR ---
LENKA SHARMA HE WANTS FOOD NOW AND REPORTS THAT HE HAS NOT EATEN IN 2 DAYS. I EXPLAINED THAT SOON WE GET LABS BACK I WOULD DISCUSS IT WITH THE
[2020-10-04 11:38] LABS: BASOPHILS % (AUTO) 0.8 % (0-1); EOSINOPHILS # (AUTO) 0.1 X10'3 (0-0.9); EOSINOPHILS % (AUTO) 1.6 % (0-6); HEMATOCRIT 41.9 % (42.0-52.0); HEMOGLOBIN 13.8 g/dl (14.0-17.9); LYMPHOCYTES # (AUTO) 1.1 X10'3 (1.1-4.8); LYMPHOCYTES % (AUTO) 17.2 % (21-51); MEAN CORPUSCULAR HEMOGLOBIN 29.9 PG (27.0-31.0); MEAN CORPUSCULAR VOLUME 90.5 FL (78-98); MEAN PLATELET VOLUME 7.5 FL (7.4-10.4); MONOCYTES # (AUTO) 0.4 X10'3 (0-0.9); NEUTROPHILS # (AUTO) 4.7 X10'3 (1.8-7.7); NEUTROPHILS % (AUTO) 73.4 % (42-75); PLATELET COUNT 208 X10'3 (140-440); RED BLOOD COUNT 4.63 X10'6 (4.70-6.10); RED CELL DISTRIBUTION WIDTH 14.9 % (11.5-14.5); WHITE BLOOD COUNT 6.4 X10'3 (4.5-11.0)
[2020-10-04 11:48] LABS: ALANINE AMINOTRANSFERASE 100 U/L (12-78); ALBUMIN 3.4 G/DL (3.4-5.0); ALBUMIN/GLOBULIN RATIO 0.8 (1.1-1.5); ALKALINE PHOSPHATASE 95 IU/L (46-116); ANION GAP 9 (8-16); ASPARTATE AMINO TRANSFERASE 27 U/L (10-37); BILIRUBIN,TOTAL 1.3 MG/DL (0.1-1.0); BLOOD UREA NITROGEN 27 MG/DL (7-18); BUN/CREATININE RATIO 26.7 (5.4-32.0); CALCIUM 8.9 MG/DL (8.5-10.1); CHLORIDE 101 MMOL/L (99-107); CREATININE 1.01 MG/DL (0.60-1.10); GLUCOSE 104 MG/DL (70-104); POTASSIUM 4.4 MMOL/L (3.5-5.1); SODIUM 137 MMOL/L (135-145); TOTAL CARBON DIOXIDE 27.4 MMOL/L (24-32); TOTAL PROTEIN 7.6 G/DL (6.4-8.2); eGFR 73 ML/MIN
[2020-10-04 11:58] LABS: MAGNESIUM 2.2 MG/DL (1.5-2.4)
[2020-10-04] MEDS ORDERED: magnesium hydroxide 30ml (MOM) UD suspension PO PRN (12:55)
[2020-10-04] MEDS ORDERED: mag hydrox/Alum hydrox/simeth 30ml oral suspension PO PRN (12:55)
[2020-10-04] MEDS ORDERED: ondansetron/PF 4mg/2ml inj IV PRN (12:55)
[2020-10-04] MEDS ORDERED: acetaminophen 325mg tablet PO PRN (12:55)
[2020-10-04] MEDS ORDERED: CLOP75TA35 PO (13:02)
[2020-10-04] MEDS ORDERED: OMEP-50 PO (13:02)
--- NOTE | 2020-10-04 13:37 | NUR ---
ECHO AT BEDSIDE EVALUATING PT.
--- NOTE | 2020-10-04 14:08 | NUR ---
PT NON COMPLIANT WITH MONITORS.
--- NOTE | 2020-10-04 14:46 | NUR ---
I have received report from PINO Sanches and had the opportunity to ask questions and assume patient care.
[2020-10-04 15:00] VITALS: BP 111/59
[2020-10-04] MEDS ORDERED: fluticasone nasal spray 16GM bottle NS SCH (17:25)
[2020-10-04] MEDS ORDERED: ALBUTEROL INHALER 1 PUFF/90 MCG INHALER IH PRN (17:30)
[2020-10-04] MEDS ORDERED: albuterol 2.5 MG/3 ML nebule NEB PRN (17:55)
[2020-10-04 18:00] VITALS: BP 130/111
--- NOTE | 2020-10-04 18:23 | NUR ---
Problems reprioritized. Patient report given, questions answered & plan of care reviewed with PINO Pascual.
--- NOTE | 2020-10-04 18:31 | NUR ---
Patient in room PCU 3017. I have received report from Madhuri PRINGLE and had the opportunity to ask questions and assume patient care.
--- NOTE | 2020-10-04 19:07 | NUR ---
Patient refusing MRSA swab
[2020-10-04] MEDS ORDERED: furosemide 10 MG/1 ML 10ml inj IV SCH (20:00)
[2020-10-04] MEDS ORDERED: heparin, porcine 5000 units/ml vial SQ SCH (20:00)
[2020-10-04] MEDS ORDERED: carvedilol 6.25mg tablet PO SCH (20:00)
[2020-10-04] MEDS: ipratropium/albuterol 3ml nebule NEB PRN (20:16)
[2020-10-04 22:00] VITALS: BP 96/53
--- NOTE | 2020-10-04 22:56 | NUR ---
Sent page to , patient going in and out of Afib with bundle branch block and sinus rhythm. HR in 80's. No history of Afib. Addendum: 10/04/20 at 1274 by Samara Arnold RN Spoke with MD and no new orders at this time
[2020-10-05] MEDS: ipratropium/albuterol 3ml nebule NEB PRN (01:57)
[2020-10-05 02:00] VITALS: BP 113/59
[2020-10-05] MEDS ORDERED: temazepam 15mg capsule PO PRN (02:25)
--- NOTE | 2020-10-05 06:00 | NUR ---
Patient asking about being discharged, explained and educated on the plan of care for him. Patient doesn't seem receptive and says it's almost [place] and he doesn't want to stay here all day. Talked patient into staying for now. Will inform day nurse.
[2020-10-05 06:30] VITALS: BP 107/68
--- NOTE | 2020-10-05 06:32 | NUR ---
Problems reprioritized. Patient report given, questions answered & plan of care reviewed with Donna PRINGLE.
--- NOTE | 2020-10-05 06:39 | NUR ---
PAGER ID: [phone] MESSAGE: Rudy Sampson [id number] : patient leaving AMA. yoana miller [phone]
--- NOTE | 2020-10-05 06:51 | NUR ---
Arrived to shift. Patient saying he wants to leave AMA. He has done this on past admissions, he refused to wait for the hospitalist to come talk with him. Patient is aware of procedures and POC for the day. He says that he doesn't care and just wants to leave. Explained to patient the importance of continuing his hospital course. Very noncompliant and impulsive. IV removed, traffic monitor specialist removed. All belongings taken from room.
[2020-10-05 07:23] LABS: BASOPHILS % (AUTO) 0.6 % (0-1); EOSINOPHILS # (AUTO) 0.1 X10'3 (0-0.9); EOSINOPHILS % (AUTO) 1.4 % (0-6); HEMATOCRIT 40.1 % (42.0-52.0); LYMPHOCYTES # (AUTO) 1.4 X10'3 (1.1-4.8); LYMPHOCYTES % (AUTO) 19.8 % (21-51); MEAN CORPUSCULAR HEMOGLOBIN 29.4 PG (27.0-31.0); MEAN CORPUSCULAR HGB CONC 32.5 g/dL (33.0-36.5); MEAN CORPUSCULAR VOLUME 90.5 FL (78-98); MEAN PLATELET VOLUME 7.9 FL (7.4-10.4); MONOCYTES # (AUTO) 0.7 X10'3 (0-0.9); MONOCYTES % (AUTO) 10.4 % (2-12); NEUTROPHILS # (AUTO) 4.9 X10'3 (1.8-7.7); NEUTROPHILS % (AUTO) 67.8 % (42-75); PLATELET COUNT 190 X10'3 (140-440); RED BLOOD COUNT 4.44 X10'6 (4.70-6.10); RED CELL DISTRIBUTION WIDTH 14.7 % (11.5-14.5); WHITE BLOOD COUNT 7.2 X10'3 (4.5-11.0)
[2020-10-05] MEDS ORDERED: pantoprazole 40mg Tablet.DR PO SCH (07:30)
[2020-10-05 07:31] LABS: ALBUMIN 3.1 G/DL (3.4-5.0); ANION GAP 9 (8-16); BLOOD UREA NITROGEN 30 MG/DL (7-18); BUN/CREATININE RATIO 29.1 (5.4-32.0); CALCIUM 8.7 MG/DL (8.5-10.1); CHLORIDE 101 MMOL/L (99-107); CREATININE 1.03 MG/DL (0.60-1.10); GLUCOSE 122 MG/DL (70-104); POTASSIUM 4.6 MMOL/L (3.5-5.1); SODIUM 135 MMOL/L (135-145); TOTAL CARBON DIOXIDE 24.9 MMOL/L (24-32); eGFR 72 ML/MIN
[2020-10-05] MEDS ORDERED: clopidogrel 75mg tablet PO SCH (08:00)
[2020-10-05] MEDS ORDERED: atorvastatin 20mg tablet PO SCH (08:00)
[2020-10-05] MEDS ORDERED: lisinopril 2.5mg tablet PO SCH (08:00)
[2020-10-05] MEDS ORDERED: aspirin 81mg tablet.DR PO SCH (08:00)
== END 2020-10-05 06:46 | disposition left against medical advice (07) | DRG 291 ==
LOC: ER 10:37 → ED HOLD 12:51 → PCU 3S 15:30
PROVIDERS: ADMIT Family Medicine; ATTEND Family Medicine
DX: I11.0 Hypertensive heart disease with heart failure (principal); J96.21 Acute and chronic respiratory failure with hypoxia; J44.0 Chronic obstructive pulmonary disease with (acute) lower respiratory infection; E03.9 Hypothyroidism, unspecified; I50.23 Acute on chronic systolic (congestive) heart failure; E78.00 Pure hypercholesterolemia, unspecified; E78.5 Hyperlipidemia, unspecified; F17.210 Nicotine dependence, cigarettes, uncomplicated; Z20.828 Contact with and (suspected) exposure to other viral communicable diseases; F10.10 Alcohol abuse, uncomplicated; Z53.29 Procedure and treatment not carried out because of patient's decision for other reasons; K21.9 Gastro-esophageal reflux disease without esophagitis; F41.9 Anxiety disorder, unspecified; I35.0 Nonrheumatic aortic (valve) stenosis; Z80.3 Family history of malignant neoplasm of breast; Z91.14 Patient's other noncompliance with medication regimen; I25.2 Old myocardial infarction; Z95.2 Presence of prosthetic heart valve; Z80.59 Family history of malignant neoplasm of other urinary tract organ; Z80.0 Family history of malignant neoplasm of digestive organs; Z71.6 Tobacco abuse counseling
CPT/HCPCS: 36415; 71045; 76937; 80048; 80053; 83735; 83880; 84484; 85025; 85610; 87635; 93005; 93308; 94640; 94760; 96374; 99285; G0378; J1644; J1940